=== PATIENT | female | born 1965 | race Caucasian/White ===

== ENCOUNTER 2020-07-16 17:54 | Emergency (ER) | payer OTHER, BC ==
[2020-07-16 20:06] LABS: HEMOGLOBIN 13.3 gm/dl (12.3-15.3); RED BLOOD COUNT 4.68 M/UL (4.00-5.10); WHITE BLOOD COUNT 8.1 K/UL (4.5-11.0)
[2020-07-16 20:45] LABS: BUN/CREATININE RATIO 10 (0-10)
== END 2020-07-16 22:00 | disposition home or self-care (01) ==
LOC: ER1 17:54
PROVIDERS: Physician Assistant
DX: M54.9 Dorsalgia, unspecified (principal); R20.2 Paresthesia of skin
CPT/HCPCS: 71045; 80053; 82550; 82553; 83874; 84484; 85025; 85379; 93005; 99284